=== PATIENT | male | born 1970 | race Caucasian/White ===

== ENCOUNTER 2017-01-15 10:22 | Day surgery (SDC) | payer OTHER ==
[~2017-01-15] VITALS: Ht 177.8 cm; Wt 90.7 kg
[2017-01-15 10:54] VITALS: BP 122/76
[2017-01-15] MEDS ORDERED: PERCOCET 5/31 TABLET PO (12:59)
[2017-01-15 14:05] VITALS: BP 135/71
[2017-01-15 15:05] VITALS: BP 146/74
== END 2017-01-15 15:10 | disposition home or self-care (01) ==
LOC: SDC 10:22
PROC: 0YU50JZ Supplement Right Inguinal Region with Synthetic Substitute, Open Approach (ICD-10-PCS; principal; 2017-01-15)
DX: K40.90 Unilateral inguinal hernia, without obstruction or gangrene, not specified as recurrent (principal); Q43.1 Hirschsprung's disease; Z82.49 Family history of ischemic heart disease and other diseases of the circulatory system; Z83.3 Family history of diabetes mellitus
CPT/HCPCS: C1781; J0690; J1100; J1885; J2250; J2405; J3010